=== PATIENT | female | born 1945 | race Caucasian/White ===

== ENCOUNTER 2023-08-19 09:10 | Emergency (ER) | payer MEDICARE ==
[~2023-08-19] VITALS: Ht 160 cm; Wt 90.7 kg
[~2023-08-19 09:10] MED LIST: ALDACTONE50 M1 PO
[2023-08-19 10:05] LABS: BASO # 0.1 10*3/uL (0.0-0.1); BASO % 0.4 % (0.0-1.0); EOS # 0.1 10*3/uL (0.0-0.4); EOS % 0.8 % (1.0-4.0); LYMPH # 2.8 10*3/uL (1.3-4.4); LYMPH % 18.5 % (27.0-41.0); MEAN CELL VOLUME 93.8 fl (81.0-99.0); MEAN CORPUSCULAR HGB 29.4 pg (27.0-31.0); MEAN CORPUSCULAR HGB CONC 31.4 g/dl (33.0-37.0); MEAN PLATELET VOLUME 8.9 fl (9.6-12.3); MONO # 0.6 10*3/uL (0.1-1.0); MONO % 3.6 % (3.0-9.0); NEUT # 11.5 10*3/uL (2.3-7.9); NUCLEATED RED BLOOD CELL 0.1 % (0.0-0.0); PLATELET COUNT AUTOMATED 376 10*3/uL (130-400); RED BLOOD COUNT 5.44 10*6/uL (4.10-5.10); RED CELL DISTRI WIDTH 14.7 % (0-14.5); WHITE BLOOD COUNT 15.1 10*3/uL (4.8-10.8)
[2023-08-19 10:26] LABS: ALKALINE PHOSPHATASE 81 U/L (46-116); BUN 10 mg/dl (9-23); CHLORIDE 105 mmol/L (98-107); SGPT/ALT 15 U/L (5-49)
[2023-08-19 10:45] LABS: ACT PARTIAL THROMBO TIME 29.4 SECONDS (20.0-32.1)
[2023-08-19] MEDS ORDERED: PERCOCET 5-3251 EACH PO (11:38)
== END 2023-08-19 12:12 | disposition home or self-care (01) ==
LOC: ED 09:10
PROVIDERS: Emergency Medicine
DX: S42.91XA Fracture of right shoulder girdle, part unspecified, initial encounter for closed fracture (principal); I10 Essential (primary) hypertension; Z90.49 Acquired absence of other specified parts of digestive tract; Z90.710 Acquired absence of both cervix and uterus; Z96.651 Presence of right artificial knee joint; Z98.890 Other specified postprocedural states; W01.10XA Fall on same level from slipping, tripping and stumbling with subsequent striking against unspecified object, initial encounter; Y93.89 Activity, other specified; Y92.89 Other specified places as the place of occurrence of the external cause; Y99.8 Other external cause status

== ENCOUNTER → 2023-08-28 | Outpatient (CLI) | payer MEDICARE ==
[~2023-08-28] MED LIST changes: +PERCOCET 5-3251 EACH PO
== END | disposition home or self-care (01) ==
LOC: ORTHO 00:58
PROVIDERS: ATTEND Orthopaedic Surgery
DX: S42.201D Unspecified fracture of upper end of right humerus, subsequent encounter for fracture with routine healing (principal); X58.XXXD Exposure to other specified factors, subsequent encounter

== ENCOUNTER → 2023-09-11 | Outpatient (CLI) | payer MEDICARE | END | disposition home or self-care (01) | LOC: ORTHO 01:11 | PROVIDERS: ATTEND Orthopaedic Surgery | DX: S42.201D Unspecified fracture of upper end of right humerus, subsequent encounter for fracture with routine healing (principal); M21.051 Valgus deformity, not elsewhere classified, right hip; M16.11 Unilateral primary osteoarthritis, right hip; X58.XXXD Exposure to other specified factors, subsequent encounter ==

== ENCOUNTER → 2023-09-18 | Outpatient (CLI) | payer MEDICARE | END | disposition home or self-care (01) | LOC: ORTHO 01:21 | PROVIDERS: ATTEND Orthopaedic Surgery | DX: S42.201D Unspecified fracture of upper end of right humerus, subsequent encounter for fracture with routine healing (principal); X58.XXXD Exposure to other specified factors, subsequent encounter ==

== ENCOUNTER → 2023-10-02 | Outpatient (CLI) | payer MEDICARE | END | disposition home or self-care (01) | LOC: ORTHO 00:55 | PROVIDERS: ATTEND Orthopaedic Surgery | DX: S42.201D Unspecified fracture of upper end of right humerus, subsequent encounter for fracture with routine healing (principal); M19.011 Primary osteoarthritis, right shoulder; X58.XXXD Exposure to other specified factors, subsequent encounter ==

== ENCOUNTER → 2025-05-03 | Outpatient (CLI) | payer MEDICARE ==
[~2025-05-03] MED LIST changes: +GADOTERATE MEGLUMINE 10 MMOL/20 ML VIAL IV ONE
== END | disposition home or self-care (01) ==
LOC: MRI 00:47 → US 05-07 13:00
PROVIDERS: ATTEND Family Medicine
DX: G93.89 Other specified disorders of brain (principal); R42 Dizziness and giddiness; R51.9 Headache, unspecified

== ENCOUNTER → 2025-05-07 | Outpatient (CLI) | payer MEDICARE ==
[~2025-05-07] MED LIST changes: -GADOTERATE MEGLUMINE 10 MMOL/20 ML VIAL IV ONE
== END | disposition home or self-care (01) ==
LOC: US 05:14
PROVIDERS: ATTEND Family Medicine
DX: I65.23 Occlusion and stenosis of bilateral carotid arteries (principal); Z13.220 Encounter for screening for lipoid disorders; R42 Dizziness and giddiness; R51.9 Headache, unspecified; Z78.0 Asymptomatic menopausal state